=== PATIENT | female | born 1955 | race American Indian/Alaskan Native ===

== ENCOUNTER 2016-06-23 04:08 | Emergency (ER) | payer OTHER ==
[2016-06-23 04:22] VITALS: BP 152/96
[2016-06-23] MEDS ORDERED: DUONEB 0.5 MG-3 MG/3 ML SOLN IH ONE (04:27)
[2016-06-23 05:29] LABS: Alanine Aminotransferase 45 units/L (7-56); Albumin 3.9 g/dL (3.9-5); Albumin/Globulin Ratio 0.9 %; Alkaline Phosphatase 139 units/L (35-129); BUN/Creatinine Ratio 17.14; Bilirubin,Total 0.8 mg/dL (0.1-1.2); Blood Urea Nitrogen 12 mg/dL (7-17); Calcium 9.5 mg/dL (8.4-10.2); Carbon Dioxide 26 mmol/L (22-30); Chloride 100.8 mmol/L (98-107); Glucose 118 mg/dL (65-100); Lipase 25 units/L (13-60); Potassium 4.2 mmol/L (3.6-5.0); Sodium 142 mmol/L (137-145); Total Protein 8.2 g/dL (6.3-8.2)
[2016-06-23 05:36] LABS: Anion Gap 19 mmol/L
[2016-06-23 05:53] LABS: Basophils % (Auto) 0.3 % (0.0-1.8); Eosinophils % (Auto) 0.2 % (0.0-4.3); Hematocrit 42.7 % (30.3-42.9); Mean Corpuscular HGB Conc 33 % (30-34); Mean Corpuscular Hemoglobin 29 pg (28-32); Mean Corpuscular Volume 88 fl (79-97); Platelet Count 196 K/mm3 (140-440); Red Blood Count 4.86 M/mm3 (3.65-5.03); Red Cell Distribution Width 13.5 % (13.2-15.2); White Blood Count 14.3 K/mm3 (4.5-11.0)
[2016-06-23 07:30] LABS: Bacteria,Urine 1+ /HPF (Negative); Bilirubin,Urine NEG (Negative); Blood,Urine NEG (Negative); Ketones,Urine NEG (Negative); Leukocyte Esterase,Urine SM (Negative); Mucus,Urine FEW /HPF; Nitrite,Urine NEG (Negative); Protein,Urine <15 mg/dL mg/dL (Negative); Urobilinogen,Urine < 2.0 mg/dL (<2.0)
--- NOTE | 2016-06-24 18:03 | ED Elopement Review ---
ED Pt Elopement review - Results review Lab results: Laboratory Tests 06/23/16 06/23/16 06/23/16 04:51 04:51 06:24 WBC 14.3 H RBC 4.86 Hgb 14.0 Hct 42.7 MCV 88 MCH 29 MCHC 33 RDW 13.5 Plt Count 196 Lymph % (Auto) 15.1 Mor[place] % (Auto) 3.2 Eos % (Auto) 0.2 Baso % (Auto) 0.3 Lymph # 2.2 Mora # 0.5 Eos # 0.0 Baso # 0.0 Seg Neutrophils % 81.2 H Seg Neutrophils # 11.6 H Sodium 142 Potassium 4.2 Chloride 100.8 Carbon Dioxide 26 Anion Gap 19 BUN 12 Creatinine 0.7 Estimated GFR > 60 BUN/Creatinine Ratio 17.14 Glucose 118 H Calcium 9.5 Total Bilirubin 0.8 AST 86 H ALT 45 Alkaline Phosphatase 139 H Total Protein 8.2 Albumin 3.9 Albumin/Globulin Ratio 0.9 Lipase 25 Urine Color Yellow Urine Turbidity Slightly-cloudy Urine pH 6.0 Ur Specific [place] 1.017 Urine Protein <15 mg/dl Urine Glucose (UA) Neg Urine Ketones Neg Urine Blood Neg Urine Nitrite Neg Urine Bilirubin Neg Urine Urobilinogen < 2.0 Ur Leukocyte Esterase Sm Urine WBC (Auto) 4.0 Urine RBC (Auto) 3.0 U Epithel Cells (Auto) 5.0 Urine Bacteria (Auto) 1+ Urine Mucus Few - Call Back decision Pt Call Back Decision: No action required
== END 2016-06-23 16:20 | disposition left against medical advice (07) ==
LOC: ED 04:08
DX: R06.02 Shortness of breath (principal); R10.10 Upper abdominal pain, unspecified; R11.2 Nausea with vomiting, unspecified; Z53.21 Procedure and treatment not carried out due to patient leaving prior to being seen by health care provider
CPT/HCPCS: 36415; 80053; 81001; 83690; 85025; 94640